=== PATIENT | female | born 1930 | race Caucasian/White ===

== ENCOUNTER → 2017-01-27 | Outpatient (CLI) | payer MEDICARE, BC ==
[~2017-01-27] MED LIST: ANTIVERT25 MG PO; ASPIRIN81 MG PO; COLACE100 MG PO; COREG25 MG PO; CYMBALTA30 MG PO; EFFEXOR XR75 MG PO; GARLIC1000 MG PO; LASIX20 MG PO; LOTENSIN40 MG PO; NATURE-THRO113.75 MG PO; NIACIN250 M1 PO; NORVASC10 MG PO; ORPHENADRINE C100 MG PO; PROTONIX40 MG PO; ULTRAM50 MG PO; ZOCOR40 MG PO; [UNRECOGNIZED DRUG - OTHER] PO; thyroxine
== END | disposition short-term general hospital (02) ==
LOC: CLPAIN 09:29
DX: M47.812 Spondylosis without myelopathy or radiculopathy, cervical region (principal); M54.81 Occipital neuralgia; R51 Headache; M79.1 Myalgia

== ENCOUNTER → 2017-02-24 | Outpatient (CLI) | payer MEDICARE, BC | END | disposition short-term general hospital (02) | LOC: CLPAIN 07:49 | DX: M47.812 Spondylosis without myelopathy or radiculopathy, cervical region (principal); M79.1 Myalgia; R51 Headache; G89.4 Chronic pain syndrome ==

== ENCOUNTER → 2017-03-24 | Outpatient (CLI) | payer MEDICARE, BC | END | disposition short-term general hospital (02) | LOC: CLPAIN 11:25 | DX: M54.81 Occipital neuralgia (principal); G89.4 Chronic pain syndrome; M79.1 Myalgia; M54.2 Cervicalgia; R51 Headache ==

== ENCOUNTER → 2017-04-12 | Outpatient (CLI) | payer MEDICARE, BC | END | disposition short-term general hospital (02) | LOC: CLNEUR 09:13 → CLPHYS 10:22 → CLNEUR 10:33 | DX: R51 Headache (principal) ==